=== PATIENT | female | born 1940 | race Caucasian/White ===

== ENCOUNTER 2021-01-19 09:29 | Emergency (ER) | payer MEDICAID ==
[~2021-01-19] VITALS: Ht 152.4 cm; Wt 44.5 kg
[2021-01-19 09:37] VITALS: BP 110/70; Ht 152.4 cm; Wt 44.5 kg
[2021-01-19] MEDS ORDERED: ERYOO OD (10:18)
== END 2021-01-19 10:54 | disposition home or self-care (01) ==
LOC: ED 09:29
DX: H00.011 Hordeolum externum right upper eyelid (principal)